=== PATIENT | male | born 1960 | race Caucasian/White ===

== ENCOUNTER → 2018-10-15 | Outpatient (CLI) | payer BC ==
--- NOTE | 2018-10-15 15:40 | PCVCIMAG ---
APPROVED REPORT Study performed: 10/15/2018 14:03:05 EXAM: Comprehensive 2D, Doppler, and color-flow Echocardiogram Patient Location: Echo lab Status: routine BSA: 1.83 HR: 79 bpmBP: 126/64 mmHg Rhythm: NSR Other Information Study Quality: Good Risk Factors: Cardiac Risk Factors: Hyperlipidemia, HTN Indications Chest Tightness 2D Dimensions IVSd: 8.74 (7-11mm)LVOT Diam: 20.00 (18-24mm) LVDd: 38.55 mm PWd: 9.39 (7-11mm)Ascending Ao: 30.58 (22-36mm) LVDs: 28.11 (25-40mm) Left Atrium: 34.72 (27-40mm) Aortic Root: 29.07 mm LV Single Plane 4CH: 62.88 % LV Single Plane 2CH: 69.05 % Biplane EF: 66.9 % Volumes Left Atrial Volume (Systole) Single Plane 4CH: 50.06 mLSingle Plane 2CH: 36.03 mL LA ESV Index: 24.00 mL/m2 Aortic Valve AoV Peak Nik.: 1.38 m/s AO Peak Gr.: 7.59 mmHgLVOT Max P.11 mmHg LVOT Max V: 1.24 m/s SMILEY Vmax: 2.74 cm2 AI Vmax: 3.90 m/s AI [place]: 2.66 m/s2 AI PHT: 426.00 ms Mitral Valve E/A Ratio: 1.3 MV Decel. Time: 148.92 ms MV E Max Nik.: 0.80 m/s MV A Nik.: 0.64 m/s IVRT: 65.74 ms TDI E/Lateral E': 6.67E/Medial E': 8.89 Medial E' Nik.: 0.09 m/s Lateral E' Nik.: 0.12 m/s Pulmonary Valve PV Peak Nik.: 0.98 m/sPV Peak Gr.: 3.82 mmHg Pulmonary Vein P Vein S: 0.68 m/sP Vein A: 0.36 m/s P Vein D: 0.51 m/sP Vein A Dur.: 79.6 msec P Vein S/D Ratio: 1.33 Tricuspid Valve TR Peak Nik.: 2.19 m/sRAP Estimate: 7.00 mmHg TR Peak Gr.: 19.21 mmHg PA Pressure: 26.00 mmHg Left Ventricle The left ventricle is normal size. There is normal LV segmental wall motion. There is normal left ventricular wall thickness. Left ventricular systolic function is normal. The left ventricular ejection fraction is within the normal range. LVEF is 60-65%. The left ventricular diastolic function is normal. Right Ventricle The right ventricle is normal size. The right ventricular systolic function is normal. Atria The left atrium size is normal. The right atrium size is normal. Aortic Valve The aortic valve is normal in structure. Mild aortic regurgitation. There is no aortic valvular stenosis. Mitral Valve The mitral valve is normal in structure. Trace mitral regurgitation. No evidence of mitral valve stenosis. Tricuspid Valve The tricuspid valve is normal in structure. Trace tricuspid regurgitation. Pulmonary artery pressure is 26 mmHg. Pulmonic Valve The pulmonary valve is normal in structure. Trace pulmonic regurgitation. Great Vessels The aortic root is normal in size. IVC is normal in size and collapses >50% with inspiration. Pericardium There is no pericardial effusion. <Conclusion> The left ventricle is normal size. There is normal left ventricular wall thickness. Left ventricular systolic function is normal. The left ventricular diastolic function is normal. The right ventricle is normal size. The left atrium size is normal. The right atrium size is normal. Mild aortic regurgitation. Trace mitral regurgitation. Trace tricuspid regurgitation. Pulmonary artery pressure is 26 mmHg.
--- NOTE | 2018-10-15 15:41 | PCVCIMAG ---
APPROVED REPORT Study performed: 10/15/2018 14:49:47 Exam: Stress Echocardiogram Indication: Chest Tightness Patient Location: Echo lab Stress Nurse: Dulce Maria Haro RN Status: routine Ht: 5 ft 5 in HR: 94 bpm BP: 126/64 mmHg Rhythm: NSR Medical History Medical History: Hyperlipidemia, HTN Procedure The patient underwent an Exercise Stress Test using the Juan Protocol. Blood pressure, heart rate, and EKG were monitored. An Echocardiogram was performed by health technician in four stages in quad fashion. At peak stress, four selected images were obtained and placed side by side with resting images for comparison. Stress Test Details Stress Test: Exercise stress testing was performed using a Juan protocol. HR Resting HR: 93 bpmMax Heart Rate (APMHR): 162 bpm Max HR Achieved: 181 bpmTarget HR (85% APMHR): 137 bpm % of APMHR: 111 Recovery HR: 116 bpm HR response to stress: Normal HR response to stress BP Resting BP: 126/64 mmHg Max BP: 176/82 mmHg Recovery BP: 142/78 mmHg BP response to stress: Normal blood pressure response to stress. ECG Resting ECG: Sinus Rhythm Stress ECG: Sinus Rhythm ST Change: Non-ischemic Recovery ECG: Sinus Rhythm Clinical Reason for Termination: Maximal effort Exercise duration: 7 min 31 sec Highest Stage Achieved: Stage 3: 3.4 mph at 14% grade. Exercise capacity: 10.10 METs Overall Exercise Capacity for Age: Average Stress ECG Conclusion ECG: Non-ischemic Clinical: Non-ischemic Pre-Stress Echo The resting Echocardiogram showed normal left ventricular contractility with an estimated Ejection Fraction of about >55%. Normal wall motion in all segments on baseline images. Post-Stress Echo The stress Echocardiogram showed normal left ventricular contractility with an estimated Ejection Fraction of about 60-65%. Normal augmentation of wall motion in all segments on post stress images. Clinical No clinical or ECG evidence for ischemia. Conclusion Clinical Response: Non-ischemic Exercise Capacity: Average Stress ECG Response: Non-ischemic Stress Echo Images: Non-ischemic The left ventricle is normal in size and wall thickness in both the rest and stress images. Other Information Study Quality: Good <Conclusion> The left ventricle is normal in size and wall thickness in both the rest and stress images.
== END | disposition home or self-care (01) ==
LOC: PCVCIMAG 14:07
PROVIDERS: ATTEND Internal Medicine Cardiovascular Disease
DX: I35.1 Nonrheumatic aortic (valve) insufficiency (principal); R07.89 Other chest pain
CPT/HCPCS: 93306; 93351